=== PATIENT | female | born 1980 | race Two or more races ===

== ENCOUNTER 2020-04-21 15:01 | Emergency (ER) | payer SELFPAY ==
[~2020-04-21] VITALS: Ht 157.5 cm; Wt 89.8 kg
[2020-04-21 15:03] VITALS: BP 115/70
== END 2020-04-21 17:46 | disposition home or self-care (01) ==
LOC: ER 15:01
DX: U07.1 COVID-19 (principal); K52.9 Noninfective gastroenteritis and colitis, unspecified; J45.909 Unspecified asthma, uncomplicated; Z90.710 Acquired absence of both cervix and uterus
CPT/HCPCS: 71045; 87635

== ENCOUNTER 2020-04-22 12:33 | Emergency (ER) | payer BC, OTHER ==
[~2020-04-22] VITALS: Ht 157.5 cm; Wt 89.8 kg
[2020-04-22 14:00] VITALS: BP 107/78
== END 2020-04-22 14:38 | disposition home or self-care (01) ==
LOC: ER 12:33
DX: R19.7 Diarrhea, unspecified (principal); R10.84 Generalized abdominal pain; Z20.828 Contact with and (suspected) exposure to other viral communicable diseases

== ENCOUNTER 2022-09-13 09:27 | Emergency (ER) | payer BC ==
[~2022-09-13] VITALS: Ht 157.5 cm; Wt 91.1 kg
[2022-09-13 09:38] VITALS: BP 111/70
[2022-09-13 10:22] LABS: Basophils # (auto) 0 10 ^3/uL (0-0.2); Basophils % (auto) 0.4 % (0.0-2.0); Eosinophils # (auto) 0.2 10 ^3/uL (0-0.8); Eosinophils % (auto) 2.4 % (0.0-7.0); Hematocrit 39.7 % (36.0-46.0); Lymphocytes # (auto) 2.4 10 ^3/uL (0.4-5.4); Lymphocytes % (auto) 29.6 % (10.0-50.0); Mean Corpuscular Hemoglobin 29.2 pg (28.0-32.0); Mean Corpuscular Hgb Conc. 32.6 g/dL (32.0-36.0); Mean Corpuscular Volume 89.5 fL (80.0-100.0); Monocytes # (auto) 0.5 10 ^3/uL (0-1.3); Monocytes % (auto) 6.7 % (0.0-12.0); Neutrophils # (auto) 4.9 10 ^3/uL (1.6-8.6); Neutrophils % (auto) 60.9 % (37.0-80.0); Red Blood Cells 4.44 10^6/uL (4.0-5.20)
[2022-09-13 10:22] LABS: Urine Bacteria FEW /hpf (None Seen); Urine Blood TRACE /uL (Negative); Urine Mucus FEW (None Seen); Urine Specific Gravity 1.021 (1.001-1.035); Urine WBC 2 /hpf (0 - 5)
[2022-09-13 11:04] LABS: Potassium 4.2 mmol/L (3.5-5.1)
[2022-09-13 11:11] LABS: Albumin 3.6 g/dL (3.4-5.0); BUN/Creatinine Ratio 18.2; Calcium 8.6 mg/dL (8.5-10.1)
[2022-09-13 11:14] LABS: Bilirubin, Total 0.5 mg/dL (0.2-1.0)
== END 2022-09-13 14:21 | disposition home or self-care (01) ==
LOC: ER 09:27
DX: R10.9 Unspecified abdominal pain (principal); I10 Essential (primary) hypertension; E78.5 Hyperlipidemia, unspecified; J45.909 Unspecified asthma, uncomplicated; Z90.89 Acquired absence of other organs; Z90.710 Acquired absence of both cervix and uterus
CPT/HCPCS: 36415; 71045; 74176; 80053; 81001; 83690; 85025